=== PATIENT | female | born 1990 | race African-American/Black ===

== ENCOUNTER 2018-04-27 10:34 | Emergency (ER) | payer MEDICAID ==
[~2018-04-27] VITALS: Ht 165.1 cm; Wt 84.0 kg
[2018-04-27] MEDS ORDERED: ALBUTEROL (0.083%) 2.5MG/3ML NEB HHN STA (15:03)
[2018-04-27] MEDS ORDERED: SODIUM CHLORIDE 0.9% 1,000 ML IV ONE (15:03)
[2018-04-27 15:37] LABS: CLARITY URINE CLEAR (CLEAR); COLOR URINE YELLOW (YELLOW); KETONES URINE NEGATIVE (NEGATIVE); LEUKOCYTE ESTERASE URINE NEGATIVE (NEGATIVE); NITRITE URINE NEGATIVE (NEGATIVE); OCCULT BLOOD URINE NEGATIVE (NEGATIVE); PROTEIN URINE NEGATIVE (NEGATIVE); SPECIFIC GRAVITY URINE 1.016 (1.005-1.030); UROBILINOGEN URINE 0.2 E.U./dL (0.2-1.0)
[2018-04-27 16:15] LABS: CHLORIDE 106 mEq/L (98-107); EOSINOPHILS % 3.5 % (0.0-5.0); HEMATOCRIT. 26.1 % (36.0-48.0); HEMOGLOBIN. 7.7 g/dL (12.0-16.0); LYMPHOCYTES % 22.7 % (20.0-50.0); MEAN CORPUSCULAR HEMOGLOBIN 18.4 pg (28.0-32.0); MEAN CORPUSCULAR VOLUME 62.3 fL (81.0-99.0); MEAN PLATELET VOLUME 8.6 fl (7.4-10.4); MONOCYTES % 5.1 % (2.0-8.0); NEUTROPHILS % 67.7 % (40.0-76.0); PLATELET 444 x1000/uL (130-400); RED BLOOD CELL COUNT 4.19 mill/uL (4.2-5.4); RED CELL DISTRIBUTION WIDTH 19.6 % (11.6-14.6)
[2018-04-27 17:11] LABS: HCG SCREEN NEGATIVE
[2018-04-27 17:17] LABS: PLATELET ESTIMATE NORMAL
[2018-04-27 18:23] VITALS: BP 111/70
== END 2018-04-27 18:24 | disposition home or self-care (01) ==
LOC: ER 10:34
DX: D64.9 Anemia, unspecified (principal); R05 Cough
CPT/HCPCS: 36415; 71045; 80053; 81003; 84703; 85025; 94640; 99284; J7030; J7611